=== PATIENT | female | born 1950 | race Caucasian/White ===

== ENCOUNTER 2019-04-24 05:57 | Day surgery (SDC) ==
--- NOTE | 2019-04-12 17:25 | EKG Report ---
Test Performed on : 04/12/2019 5:13:47 PM Test Reason : JOINT CAMP Blood Pressure : / mmHG Vent. Rate : 091 BPM Atrial Rate : 091 BPM P-R Int : 154 ms QRS Dur : 070 ms QT Int : 350 ms P-R-T Axes : 039 037 046 degrees QTc Int : 430 ms Normal sinus rhythm. Normal ECG When compared with ECG of 09-SEP-2017 14:20, No significant change was found Unconfirmed Result
[2019-04-12 17:42] LABS: BASO# 0.02 X1000 (0.0-0.2); BASO% 0.3 % (0.0-0.8); EOS# 0.29 X1000 (0.0-0.7); EOS% 4.6 % (0.0-10.0); HEMATOCRIT 43.2 % (37.0-47.0); HEMOGLOBIN 13.6 g/dL (12.0-16.0); IMM GRAN# 0.02 X1000 (0.0-0.04); IMM GRAN% 0.3 % (0.0-0.5); LYMPH# 2.42 X1000 (1.2-3.4); LYMPH% 38.5 % (20.5-51.1); MCH 27.6 PG (27-31); MCHC 31.5 g/dL (33-37); MCV 87.6 FL (81-99); MONO# 0.53 X1000 (0.11-0.59); MONO% 8.4 % (1.7-9.3); MPV 11.2 FL (7.4-10.4); NEUT% 47.9 % (42.2-75.2); PLT 306 X1000 (130-400); RBC 4.93 XMIL (4.2-5.4); RDW 14.1 % (11.5-14.5); WBC 6.28 X1000 (4.8-10.8)
[2019-04-12 17:49] LABS: INR 1.03; PROTIME 13.6 Seconds (11.0-16.0)
[2019-04-12 17:54] LABS: URINE SOURCE VOIDED
[2019-04-12 17:55] LABS: HEMOGLOBIN A1C 5.6 % (4.8-6.0)
[2019-04-12 18:04] LABS: ALBUMIN 4.3 g/dL (3.5-5.0); CALCIUM 9.6 mg/dL (8.8-10.2); POTASSIUM 4.9 mmol/L (3.5-5.1)
[2019-04-12 18:31] LABS: BILIRUBIN URINE NEGATIVE (NEGATIVE); BLOOD URINE NEGATIVE (NEGATIVE); COLOR YELLOW; GLUCOSE URINE NEGATIVE (NEGATIVE); KETONE URINE NEGATIVE (NEGATIVE); LEUKOCYTES URINE SMALL (NEGATIVE); NITRITE URINE NEGATIVE (NEGATIVE); PROTEIN URINE NEGATIVE (NEGATIVE); SP GRAVITY URINE 1.015; TURBIDITY URINE CLEAR (CLEAR); UROBILINOGEN URINE NORMAL (NORMAL)
[2019-04-12 18:34] LABS: UR EPITHELIAL CELLS <10 /HPF (<10); URINE BACTERIA NEGATIVE /HPF; URINE RBC <10 /HPF (<10); URINE WBC <10 /HPF (<10)
[2019-04-24] MEDS ORDERED: CELEBREX ONE (06:25)
[2019-04-24] MEDS ORDERED: COLACE ONE (06:25)
[2019-04-24] MEDS ORDERED: KEFZOL 1 GM/D5W 1 GM/50 ML IVPB ONE (06:25)
[2019-04-24] MEDS ORDERED: PEPCID ONE (06:25)
[2019-04-24] MEDS ORDERED: REGLAN ONE (06:25)
[2019-04-24] MEDS ORDERED: LR 1,000 ML ONE (06:25)
[2019-04-24] MEDS ORDERED: LYRICA ONE (06:25)
[2019-04-24] MEDS ORDERED: DURAMORPH ONE (07:13)
[2019-04-24] MEDS ORDERED: CYKLOKAPRON 1,000 MG/NS 2,000 MG/200 ML IVPB ONE (07:14)
[2019-04-24] MEDS ORDERED: EXPAREL 1.3% ONE (07:14)
[2019-04-24] MEDS ORDERED: VANCOMYCIN ONE (07:14)
[2019-04-24] MEDS ORDERED: MARCAINE 0.25% PF ONE (07:14)
[2019-04-24] MEDS ORDERED: TORADOL ONE (07:14)
[2019-04-24] MEDS ORDERED: SODIUM CHLORIDE 0.9% ONE (07:14)
[2019-04-24] MEDS ORDERED: DIPRIVAN 1% ONE (07:23)
[2019-04-24] MEDS ORDERED: FENTANYL ONE (07:24)
[2019-04-24] MEDS ORDERED: XYLOCAINE-MPF 2% ONE (07:31)
[2019-04-24] MEDS ORDERED: QUELICIN (DOSE) ONE (07:31)
[2019-04-24] MEDS ORDERED: XYLOCAINE 2% JELLY ONE (07:32)
[2019-04-24] MEDS ORDERED: VALIUM ONE (07:52)
[2019-04-24] MEDS ORDERED: VANCOMYCIN 1 GM/NS 1 GM/250 ML IVPB ONE (08:55)
[2019-04-24] MEDS ORDERED: PHENERGAN ONE (09:28)
[2019-04-24] MEDS ORDERED: ZOFRAN ONE (09:30)
[2019-04-24] MEDS ORDERED: EPHEDRINE ONE (09:34)
[2019-04-24] MEDS ORDERED: NEO-SYNEPHRINE ONE (09:34)
[2019-04-24] MEDS ORDERED: OFIRMEV 1000 MG/ISOTONIC SOLN 1,000 MG/100 ML BOTTLE ONE (09:40)
[2019-04-24] MEDS ORDERED: NS 1,000 ML ONE (11:15)
[2019-04-24] MEDS: DILAUDID ONE ×2 (11:39→11:49)
[2019-04-24] MEDS ORDERED: ZOFRAN IV PRN (11:45)
[2019-04-24] MEDS ORDERED: ZOFRAN ODT PO PRN (11:45)
[2019-04-24] MEDS ORDERED: MORPHINE IV PRN ×3 (11:45)
[2019-04-24] MEDS ORDERED: OXY IR ONE ×2 (12:03)
[2019-04-24 12:08] LABS: URINE SOURCE CATH
[2019-04-24 12:21] LABS: BILIRUBIN URINE NEGATIVE (NEGATIVE); BLOOD URINE NEGATIVE (NEGATIVE); COLOR YELLOW; GLUCOSE URINE NEGATIVE (NEGATIVE); KETONE URINE NEGATIVE (NEGATIVE); LEUKOCYTES URINE NEGATIVE (NEGATIVE); NITRITE URINE NEGATIVE (NEGATIVE); PH URINE 6.5; PROTEIN URINE NEGATIVE (NEGATIVE); SP GRAVITY URINE 1.009; TURBIDITY URINE CLEAR (CLEAR); UR EPITHELIAL CELLS <10 /HPF (<10); URINE BACTERIA NEGATIVE /HPF; URINE RBC <10 /HPF (<10); URINE WBC <10 /HPF (<10); UROBILINOGEN URINE NORMAL (NORMAL)
[2019-04-24] MEDS ORDERED: XANAX PO PRN (15:11)
--- NOTE | 2019-04-24 17:31 | OPERATIVE NOTE ---
PROCEDURE DATE: 04/24/2019 PREOPERATIVE DIAGNOSIS: Left knee degenerative joint disease. POSTOPERATIVE DIAGNOSIS: Left knee degenerative joint disease. PROCEDURE PERFORMED: Left total knee arthroplasty using [facility] size 7 femoral component, a size 6 tibial base plate, a 16 mm articular insert, and a 32 mm patellar component. ANESTHESIA: General. SURGEON: Len Garcia MD. JAVASCRIPT WEB DEVELOPER: Seun Berg. COMPLICATIONS: None. BLOOD LOSS: Minimal. TOURNIQUET TIME: Approximately 1 hour. DESCRIPTION OF PROCEDURE: The patient was brought to the operative suite and placed in the supine position. After successful administration of general anesthesia, a well-padded tourniquet was placed on left proximal thigh. The left lower extremity was prepped and draped in the usual fashion. Leg was exsanguinated, tourniquet was inflated to 350 torr. A longitudinal incision was made beginning at the superior pole patella and extended distally. Tibial tuberosity dissected sharply through the skin and full-thickness skin flaps were elevated medially and laterally. A medial arthrotomy was made. The medial capsule was elevated off the medial tibial plateau. The ACL, PCL, medial meniscus and lateral meniscus were excised. A drill was entered in the center of distal femur. Intramedullary guide was placed. Distal cutting block was pinned in place and cut was made with oscillating saw. Attention was then directed to the tibia. A drill was inserted in the tibia. Intramedullary guide was placed. Alignment was checked with drop sammy referencing off the anterior cortex, tibia and the second ray of the foot, taking 4 mm off the low side the tibia which in this case was medially. Tibial cutting block was pinned in place in the articular surface, and the patella was removed with the oscillating saw. Marginal osteophytes removed with a rongeur. Extension gaps were checked and balanced at 16 mm. The flexion gap was set to 25 mm. Once rotation was set, the femur was sized to a size 7. A size 7 cutting block was pinned in place and the anterior cuts, chamfer cuts, and posterior condylar cuts were made with the oscillating saw. Marginal osteophytes were removed with a rongeur. A box cutting block was pinned in place; a box cut was made with a box osteotome and oscillating saw. Posterior condyle osteophytes were removed with the curved osteotome and a rongeur. Attention was redirected back to the tibia. The tibia sized to size 6. A size 6 guide was used for the fin punch. The tibial trial, femoral trial and 16 mm articular insert were placed, taken through range of motion, and found to have excellent alignment, balancing, range of motion. Attention was directed to patella. Total of 9 mm of the articular surface of the patella were removed with oscillating saw. Patella sized to size 32. A size 32 guide was used to drill peg holes, lateral facet was chamfered 30 to 45 degrees. Patella trial was placed, taken through range of motion, and found to have excellent patella tracking. All trials were then removed. The knee was copiously irrigated and dried, being certain all bone debris was removed. The tibial component, femoral component, and patellar component were cemented in place with excess that may be removed with a [place]. Once the cement hardened, excess cement was again removed with an osteotome. The knee was again copiously irrigated and dried, being certain all bone and cement had been removed. The trial articular insert was removed. The knee was copiously infiltrated with Exparel, including the posterior capsule, anterior capsule, intermuscular, and subcutaneous tissue. The tourniquet was deflated. Hemostasis was obtained with electrocautery. The definitive 16 mm articular insert was locked into place. The knee was again copiously irrigated with normal saline containing irrigant and Vashe irrigation. The medial arthrotomy was closed with 0 V-LOC. Skin edge approximated with 2-0 Vicryl. Skin was closed with Prineo and a sterile dressing was applied. The patient tolerated the procedure well without complication. At the end of the procedure, all counts correct x2. The patient was transferred to the recovery room in stable condition. cc: Len Garcia MD
[2019-04-24] MEDS: TYLENOL PO SCH ×2 (18:12→21:16)
[2019-04-24] MEDS: NS 1,000 ML IV SCH (18:12)
[2019-04-24] MEDS: ULTRAM PO SCH ×2 (18:13→21:16)
[2019-04-24] MEDS ORDERED: VANCOMYCIN 1 GM/NS 1 GM/250 ML IVPB IV ONE (21:00)
[2019-04-24] MEDS ORDERED: LUMIGAN 0.01% OPH SOLUTION BOTH EYES SCH (21:00)
[2019-04-24] MEDS: CELEBREX PO SCH (21:15)
[2019-04-24] MEDS: PERIDEX MT SCH (21:15)
[2019-04-24] MEDS: LYRICA PO SCH (21:16)
[2019-04-24] MEDS: COLACE PO SCH (21:16)
[2019-04-25] MEDS: OXY IR PO PRN ×5 (01:05→15:31)
[2019-04-25] MEDS: NS 1,000 ML IV SCH ×2 (01:05→14:27)
[2019-04-25] MEDS: TYLENOL PO SCH ×2 (03:39→12:19)
[2019-04-25] MEDS: ULTRAM PO SCH ×2 (03:40→12:20)
[2019-04-25 06:55] LABS: HEMATOCRIT 34.2 % (37.0-47.0); HEMOGLOBIN 10.3 g/dL (12.0-16.0)
[2019-04-25] MEDS ORDERED: PRILOSEC PO SCH (07:00)
[2019-04-25 07:21] LABS: AGAP 10; BUN 9 mg/dL (8-22); CALCIUM 8.2 mg/dL (8.8-10.2); CHLORIDE 109 mmol/L (98-107); COSMO 287; CREATININE 0.9 mg/dL (0.5-0.9); ESTIMATED GFR > 60; GLUCOSE 117 mg/dL (70-104); SODIUM 144 mmol/L (136-145); TCO2 25 mmol/L (25-35)
[2019-04-25] MEDS ORDERED: SALINE LOCK IV FLUID XX ONE (07:40)
[2019-04-25] MEDS: PERIDEX MT SCH (08:44)
[2019-04-25] MEDS: COLACE PO SCH (08:44)
[2019-04-25] MEDS: CELEBREX PO SCH (08:44)
[2019-04-25] MEDS: LYRICA PO SCH (08:45)
[2019-04-25] MEDS ORDERED: CYMBALTA PO SCH (09:00)
[2019-04-25] MEDS ORDERED: ASPIRIN PO SCH (09:00)
[2019-04-25] MEDS ORDERED: ADDERALL PO SCH (09:00)
[2019-04-25] MEDS ORDERED: COZAAR PO SCH (09:00)
[2019-04-25] MEDS ORDERED: PEPCID PO SCH (09:00)
[2019-04-25] MEDS ORDERED: DECADRON IV ONE (09:00)
[2019-04-25 13:18] VITALS: BP 129/64
--- NOTE | 2019-04-26 11:08 | DISCHARGE SUMMARY ---
ADMISSION DATE: 04/24/2019 DISCHARGE DATE: 04/25/2019 DISCHARGE DIAGNOSIS: Left knee degenerative joint disease, status post left total knee arthroplasty. DISCHARGE MEDICATIONS: See discharge medication list. DISPOSITION: The patient was discharged to home with home health physical therapy. Instructed to return for any signs or symptoms of infection or deep venous thrombosis. Instructed to return to see Dr. Garcia next Wednesday. HOSPITAL COURSE: On the day of admission, the patient underwent a left total knee arthroplasty. Her postoperative course was unremarkable. At discharge, she is afebrile, tolerating a regular diet, ambulating well with Physical Therapy. Her wound is clean, dry, and intact without sign of infection. She is discharged to home in stable condition, with instructions to follow up as described above. cc: Len Garcia MD
[2019-05-01] MEDS ORDERED: CATAPRES-TTS-1 TD SCH (09:00)
== END 2019-04-25 15:59 | disposition home or self-care (01) ==
LOC: OR 05:57 → 4N 05:57 → OR 04-25 15:59
PROVIDERS: ATTEND Orthopaedic Surgery